=== PATIENT | female | born 1980 | race Caucasian/White ===

== ENCOUNTER → 2016-08-16 | Outpatient (CLI) | payer OTHER ==
[~2016-08-16] MED LIST: ACET-1256 PO; ASPI1CHW12 PO; ASPI325T39 PO; BCPILLS PO; FERR1TAB13 PO; FLV1 PO; LEVO1TAB35 PO; METH2.5T PO; PRENTAB26 PO; PRVHFAIN INH; VNTHFA/IN INH
--- NOTE | 2016-08-16 10:39 | DIAGNOSTIC IMAGING REPORT ---
L-SPINE MIN 4 VIEWS ROUTINE CLINICAL HISTORY: Low back and right hip pain COMPARISON STUDY: No previous studies for comparison. FINDINGS: There is a moderate lumbar levoscoliosis. No acute fractures are visualized. There is a grade 1 spondylolisthesis of L5 on S1. There is an equivocal old fracture involving the third sacral segment. There are mild multilevel degenerative changes. IMPRESSION: 1. Scoliosis 2. No acute fractures. 3. Possible old fracture involving the third sacral segment 4. Mild multilevel degenerative change Electronically signed by: Paul Handy M.D. 08/16/2016 10:37 AM
== END | disposition home or self-care (01) ==
LOC: C.LABBC 10:08
PROVIDERS: ATTEND Nurse Practitioner Family
DX: M54.5 Low back pain (principal); M41.9 Scoliosis, unspecified

== ENCOUNTER 2016-09-05 17:30 | Emergency (ER) | payer OTHER ==
[~2016-09-05 17:30] MED LIST changes: -ASPI1CHW12 PO; -ASPI325T39 PO; -FERR1TAB13 PO; -LEVO1TAB35 PO; -PRENTAB26 PO; -PRVHFAIN INH; -VNTHFA/IN INH
[2016-09-05 17:35] VITALS: TEMP 36.7; Ht 157.5 cm
[2016-09-05] MEDS ORDERED: SODIUM CHLORIDE 0.9% 1000ML 1,000 ML IV STA (17:50)
--- NOTE | 2016-09-05 17:56 | EMERGENCY ROOM VISIT NOTE ---
History Report prepared by Gianfranco: Karthikeyan Sloan Under the Supervision of: Dr. Al Alexander D.O. First contact with patient: 17:41 Chief Complaint: CHEST PAIN Stated Complaint: CHEST PAIN History of Present Illness The patient is a 36 year old female who presents to the Emergency Room with complaints of "heaviness"-like chest pain that began 1 hour ago. She rates her pain severity a 2/10. The patient recently had her remaining hip replaced at [facility] three days ago. This was due to her chronic rheumatoid arthritis. While she was in the car, her chest pain began. She then began to experiencing shortness of breath and an increase of breathing. She denies any back pain, abdominal pain, fevers, or cough. Her last known menstrual period was 2 weeks ago. She has a history of a heart murmur and the other hip replaced as well. She is currently on Aspirin, a stool softener, Tylenol, Iron, and Folic Acid. Source of History: patient Onset: 1 hour ago Position: chest Symptom Intensity: 2/10 Quality: other (heaviness) Timing: constant Associated Symptoms: + SOB, No abdominal pain, No back pain, No cough, No fevers Review of Systems See HPI for pertinent positives & negatives. A total of 10 systems reviewed and were otherwise negative. Past Medical & Surgical Medical Problems: (1) Rheumatoid arthritis Surgical Problems: (1) History of left hip replacement Family History Patient reports no known family medical history. Social History Smoking Status: Never Smoker Smokeless Tobacco Use: No Drug Use: none Housing Status: lives with family Occupation Status: employed Current/Historical Medications Scheduled Acetaminophen (Tylenol), 1,000 MG PO UD Albuterol Hfa (Ventolin Hfa), 1 PUFF INH Q4 Aspirin (Aspirin Ec), 325 MG PO DAILY Control Pills ( Control Pills), 1 TAB PO DAILY Ferrous Sulfate (Kp Ferrous Sulfate), 1 TAB PO DAILY Folic Acid (Folic Acid), 1 TAB PO WK Levofloxacin (Levaquin), 750 MG PO DAILY Methotrexate (Methotrexate), 12.5 MG PO WK Allergies Coded Allergies: Sulfa Drugs (Unverified Allergy, Unknown, "my face got red and itchy.", ) Physical Exam Vital Signs Date Time Temp Pulse Resp B/P Pulse Ox O2 Delivery O2 Flow Rate FiO2 09/05/16 22:44 110 20 128/83 98 1/22/17 20:22 110 18 128/92 100 Room Air 09/05/16 18:35 99 Room Air 09/05/16 18:35 99 Room Air 09/05/16 18:11 Room Air 09/05/16 18:10 122 09/05/16 17:35 36.7 139 20 119/82 100 Room Air Physical Exam GENERAL: Patient is awake, alert, and uncomfortable appearing. Patient is resting and showing signs of anxiety. EYES: The conjunctivae are clear. The pupils are round and reactive. EARS, NOSE, MOUTH AND THROAT: The nose is without any evidence of any deformity. Mucous membranes are moist tongue is midline NECK: The neck is nontender and supple. RESPIRATORY: Normal respiratory effort is noted there is no evidence of wheezing rhonchi or rales CARDIOVASCULAR: Tachycardic with a normal rhythm noted. There are no definite murmurs rubs or gallops. Normal S1 normal S2 GASTROINTESTINAL: The abdomen is soft. Bowel sounds are present in all quadrants. Abdomen is nontender MUSCULOSKELETAL/EXTREMITIES: There is no evidence of gross deformity or shortening appreciated. Pain with ROM of right hip. SKIN: There is no obvious evidence of any rash. There are no petechiae, pallor or cyanosis noted. No calf tenderness. NEUROLOGIC: Patient is awake alert and oriented x3. Medical Decision & Procedures ER Provider Diagnostic Interpretation: X-ray results as stated below per interpretation by me and the radiologist. CHEST ONE VIEW PORTABLE CLINICAL HISTORY: Atypical chest pain COMPARISON STUDY: 12/09/2010 FINDINGS: The cardiac and mediastinal contours are normal. There is no evidence of focal pulmonary consolidation. There is no evidence of failure. No pleural effusions are visualized.[ There is a thoracolumbar scoliosis. Arthritic changes are present within the shoulders. IMPRESSION: No active disease in the chest. Electronically signed by: Paul Handy M.D. 09/05/2016 6:31 PM Dictated Date/Time: 09/05/2016 6:31 PM Laboratory Results 09/05/16 18:50 Red Blood Count 3.49, Mean Corpuscular Volume 90.8, Mean Corpuscular Hemoglobin 30.7, Mean Corpuscular Hemoglobin Concent 33.8, Mean Platelet Volume 9.1, Neutrophils (%) (Auto) 70.1, Lymphocytes (%) (Auto) 19.9, Monocytes (%) (Auto) 7.4, Eosinophils (%) (Auto) 2.2, Basophils (%) (Auto) 0.1, Neutrophils # (Auto) 5.00, Lymphocytes # (Auto) 1.42, Monocytes # (Auto) 0.53, Eosinophils # (Auto) 0.16, Basophils # (Auto) 0.01 09/05/16 18:50 Test 09/05/16 18:50 09/05/16 18:57 White Blood Count 7.14 K/uL (4.8-10.8) Red Blood Count 3.49 M/uL (4.2-5.4) Hemoglobin 10.7 g/dL (12.0-16.0) Hematocrit 31.7 % (37-47) Mean Corpuscular Volume 90.8 fL (80-100) Mean Corpuscular Hemoglobin 30.7 pg (25-34) Mean Corpuscular Hemoglobin Concent 33.8 g/dl (32-36) Platelet Count 289 K/uL (130-400) Mean Platelet Volume 9.1 fL (7.4-10.4) Neutrophils (%) (Auto) 70.1 % Lymphocytes (%) (Auto) 19.9 % Monocytes (%) (Auto) 7.4 % Eosinophils (%) (Auto) 2.2 % Basophils (%) (Auto) 0.1 % Neutrophils # (Auto) 5.00 K/uL (1.4-6.5) Lymphocytes # (Auto) 1.42 K/uL (1.2-3.4) Monocytes # (Auto) 0.53 K/uL (0.11-0.59) Eosinophils # (Auto) 0.16 K/uL (0-0.5) Basophils # (Auto) 0.01 K/uL (0-0.2) RDW Standard Deviation 43.7 fL (36.4-46.3) RDW Coefficient of Variation 13.3 % (11.5-14.5) Immature Granulocyte % (Auto) 0.3 % Immature Granulocyte # (Auto) 0.02 K/uL (0.00-0.02) Prothrombin Time 11.1 SECONDS (9.0-12.0) Prothromb Time International Ratio 1.0 (0.9-1.1) Activated Partial Thromboplast Time 29.3 SECONDS (21.0-31.0) Partial Thromboplastin Ratio 1.1 Anion Gap 13.0 mmol/L (3-11) Estimated GFR () 149.5 Estimated GFR (Non- 129.0 BUN/Creatinine Ratio 20.9 (10-20) Calcium Level 8.3 mg/dl (8.5-10.1) Total Bilirubin 0.5 mg/dl (0.2-1) Direct Bilirubin 0.2 mg/dl (0-0.2) Aspartate Amino Transf (AST/SGOT) 29 U/L (15-37) Alanine Aminotransferase (ALT/SGPT) 22 U/L (12-78) Alkaline Phosphatase 73 U/L (45-117) Total Creatine Kinase 148 U/L (26-192) Creatine Kinase MB < 0.5 ng/ml (0.5-3.6) Creatine Kinase MB Ratio (0-3.0) Troponin I < 0.015 ng/ml (0-0.045) Total Protein 6.7 gm/dl (6.4-8.2) Albumin 3.0 gm/dl (3.4-5.0) Lipase 123 U/L (73-393) Human Chorionic Gonadotropin, Qual NEG (NEG) Bedside D-Dimer > 450 ng/mlFEU (0-450) Laboratory results per my review. Medications Administered Medications (Trade) Dose Ordered Sig/Chan Route Start Time Stop Time Status Last Admin Dose Admin Sodium Chloride (Nss 1000ml) 1,000 ml @ 999 mls/hr Q1H1M STAT IV 09/05/16 17:50 09/05/16 18:50 DC 09/05/16 18:34 999 MLS/HR Levofloxacin (Levaquin Tab) 750 mg NOW STAT PO 09/05/16 22:16 09/05/16 22:17 DC 09/05/16 22:33 750 MG ECG Indication: chest pain Rate (beats per minute): 114 Rhythm: sinus tachycardia Findings: no ectopy, other (no acute ST abnormalities) Comparison ECG Date: 09 December 2010 Change: no significant change ED Course 1741: The patient was evaluated in room B5. A complete history and physical examination were performed. 1750: Sodium Chloride 1,000 ml @ 999 mls/hr IV 2216: Levofloxacin 750 mg PO 2230: Upon reevaluation, the patient is resting. I discussed the results and treatment plan with her. She verbalized agreement of the treatment plan. She was discharged home. Medical Decision Differential diagnosis: Etiologies such as cardiac ischemia, aortic dissection, pulmonary embolism, pneumonia, pneumothorax, musculoskeletal, infections, pericarditis, myocarditis , esophageal rupture, gastrointestinal, as well as others were entertained. Nursing notes reviewed. The patient is a 36-year-old female who had a recent hip replacement for rheumatoid arthritis. She presented to the emergency department for an evaluation of chest discomfort and shortness of breath. The patient was found have an elevated d-dimer. The patient was treated with IV fluids in the emergency department. She was also given antibiotics. The patient had a nonspecific chest x-ray that did not explain her symptoms. She was found have an elevated d-dimer so CT the chest was obtained. The report was reviewed. There is no definite signs of pulmonary embolism but there was some inflammatory changes as well as nodular densities. I discussed this with the patient and she was started on an antibiotic for possible pneumonia. I discussed follow-up and encouraged her to follow-up with her primary care physician as soon as possible. I also discussed with her that she may require further studies such as repeat radiographic studies of the chest to evaluate the nodular densities. She was also started on an albuterol inhaler. She was encouraged to continue all medications as prescribed and drink plenty clear liquids. She was also encouraged to call her primary care physician in the morning to schedule follow-up appointment but return to the emergency department immediately if symptoms change worsen or if the need arises. Impression Primary Impression: Anterior chest wall pain Additional Impressions: SOB (shortness of breath) PNA (pneumonia) Scribe Attestation The scribe's documentation has been prepared under my direction and personally reviewed by me in its entirety. I confirm that the note above accurately reflects all work, treatment, procedures, and medical decision making performed by me. Departure Information Dispostion Home / Self-Care Prescriptions Albuterol Hfa (VENTOLIN HFA) 200 Puffs/37745 Mcg Aers 1 PUFF INH Q4, #1 INHALER Prov: Al Alexander, DO 09/05/16 Levofloxacin (Levaquin) 750 Mg Tab 750 MG PO DAILY, #7 TAB Prov: Al Alexander, DO 09/05/16 Referrals Rigo Ang III, CRNP (PCP) Forms HOME CARE DOCUMENTATION FORM, IMPORTANT VISIT INFORMATION Patient Instructions ED Chest Pain Atypical [facility], [facility] Additional Instructions Call your primary care physician in the morning to schedule a follow-up appointment. Continue all medications as prescribed. Rest and avoid any strenuous activity. Problem Qualifiers
[2016-09-05] MEDS ORDERED: FERR1TAB13 PO (18:10)
[2016-09-05] MEDS ORDERED: ASPI325T39 PO (18:10)
--- NOTE | 2016-09-05 18:33 | DIAGNOSTIC IMAGING REPORT ---
CHEST ONE VIEW PORTABLE CLINICAL HISTORY: Atypical chest pain COMPARISON STUDY: 12/09/2010 FINDINGS: The cardiac and mediastinal contours are normal. There is no evidence of focal pulmonary consolidation. There is no evidence of failure. No pleural effusions are visualized.[ There is a thoracolumbar scoliosis. Arthritic changes are present within the shoulders. IMPRESSION: No active disease in the chest. Electronically signed by: Paul Handy M.D. 09/05/2016 6:31 PM Dictated Date/Time: 09/05/2016 6:31 PM
[2016-09-05 18:35] VITALS: O2SAT 99
[2016-09-05 19:01] LABS: BASO % 0.1 %; BASO ABS # 0.01 K/uL (0-0.2); COMPLETE YES; EOS % 2.2 %; HEMATOCRIT 31.7 % (37-47); IG% 0.3 %; LYMPH % 19.9 %; LYMPH ABS # 1.42 K/uL (1.2-3.4); MEAN CELL VOLUME 90.8 fL (80-100); MEAN CORPUSCULAR HEMOGLOBIN 30.7 pg (25-34); MEAN CORPUSCULAR HGB CONC 33.8 g/dl (32-36); MEAN PLATELET VOLUME 9.1 fL (7.4-10.4); MONO % 7.4 %; NEUT % 70.1 %; PLATELET COUNT 289 K/uL (130-400); RED BLOOD COUNT 3.49 M/uL (4.2-5.4); WHITE BLOOD COUNT 7.14 K/uL (4.8-10.8)
[2016-09-05 19:12] LABS: PARTIAL THROMBOPLASTIN RATIO 1.1; PROTHROMBIN TIME (PATIENT) 11.1 SECONDS (9.0-12.0)
[2016-09-05 19:15] LABS: ALT/SGPT 22 U/L (12-78); BLOOD UREA NITROGEN 9 mg/dl (7-18); BUN/CREATININE RATIO 20.9 (10-20); CALCIUM 8.3 mg/dl (8.5-10.1); CARBON DIOXIDE 24 mmol/L (21-32); CHLORIDE 106 mmol/L (98-107); CREATININE 0.43 mg/dl (0.60-1.20); GLUCOSE 86 mg/dl (70-99); POTASSIUM 3.7 mmol/L (3.5-5.1); PREG INTERNAL NEGATIVE QC NEG CLEAR BACKGROUND; PREG INTERNAL POSITIVE QC POS CONTROL LINE; SODIUM 143 mmol/L (136-145)
[2016-09-05 19:20] LABS: ALKALINE PHOSPHATASE 73 U/L (45-117); AST/SGOT 29 U/L (15-37)
[2016-09-05] MEDS ORDERED: OPTIRAY 320 IV PRN (19:30)
--- NOTE | 2016-09-05 21:19 | DIAGNOSTIC IMAGING REPORT ---
CT ANGIOGRAM OF THE CHEST CLINICAL HISTORY: Chest pain, shortness of breath, history of recent surgery COMPARISON STUDY: 12/09/2010 TECHNIQUE: Following the IV administration of 79 mL of Optiray-320, CT angiogram of the thorax was performed from the thoracic inlet to the lung bases utilizing the pulmonary embolus protocol. Images are reviewed in the axial, sagittal, and coronal planes. IV contrast was administered without complication. MIP imaging was performed. CT DOSE: 199.30 mGy.cm FINDINGS: Subcarinal and hilar lymph nodes are the upper limits of normal in size. There was no evidence of thoracic aortic dilatation. There were no pulmonary artery filling defects to indicate acute pulmonary embolism. No pleural effusions are visualized. There is no lobar pulmonary consolidation. There are a few tree-in-bud opacities within the right upper lobe. In addition there is a 4 mm endobronchial nodule as visualized in image #[id number]. This is likely inflammatory. Also evident is a 2 mm left upper lobe pulmonary nodule image #[id number]. Short-term one month follow-up CT scan is recommended. IMPRESSION: 1. No CT evidence of acute pulmonary embolism 2. Minimally prominent hilar and subcarinal lymph nodes likely reactive 3. Tree-in-bud opacities in the right upper lobe. In addition there is a 4 mm endobronchial nodule within the right upper lobe. This is likely inflammatory. Short-term one-month follow-up CT scan is recommended. Electronically signed by: Paul Handy M.D. 09/05/2016 9:18 PM Dictated Date/Time: 09/05/2016 9:11 PM
[2016-09-05] MEDS ORDERED: LEVOFLOXACIN 250 MG TAB PO STA (22:16)
[2016-09-05] MEDS ORDERED: VNTHFA/IN INH (22:18)
[2016-09-05] MEDS ORDERED: LEVO1TAB35 PO (22:18)
[2016-09-05 22:44] VITALS: BP 128/83; PULSE 110; O2SAT 98
== END 2016-09-05 22:46 | disposition home or self-care (01) ==
LOC: C.EDB 17:30
DX: R07.89 Other chest pain (principal); R06.02 Shortness of breath; J18.9 Pneumonia, unspecified organism; Z79.82 Long term (current) use of aspirin

== ENCOUNTER → 2016-09-10 | Outpatient (CLI) | payer OTHER ==
[~2016-09-10] MED LIST changes: +ASPI1CHW12 PO; +ASPI325T39 PO; +FERR1TAB13 PO; +LEVO1TAB35 PO; +PRENTAB26 PO; +PRVHFAIN INH; +VNTHFA/IN INH
[2016-09-10 13:55] LABS: BASO % 0.1 %; BASO ABS # 0.01 K/uL (0-0.2); COMPLETE YES; EOS % 2.6 %; HEMATOCRIT 33.4 % (37-47); IG% 0.7 %; LYMPH % 15.2 %; LYMPH ABS # 1.04 K/uL (1.2-3.4); MEAN CELL VOLUME 90.8 fL (80-100); MEAN CORPUSCULAR HEMOGLOBIN 30.4 pg (25-34); MEAN CORPUSCULAR HGB CONC 33.5 g/dl (32-36); MONO % 9.8 %; NEUT % 71.6 %; PLATELET COUNT 434 K/uL (130-400); RED BLOOD COUNT 3.68 M/uL (4.2-5.4); WHITE BLOOD COUNT 6.82 K/uL (4.8-10.8)
== END | disposition home or self-care (01) ==
LOC: C.LABBC 12:10
PROVIDERS: ATTEND Nurse Practitioner Family
DX: Z98.890 Other specified postprocedural states (principal)

== ENCOUNTER 2016-09-24 15:30 | Emergency (ER) | payer OTHER ==
[~2016-09-24] VITALS: Ht 157.5 cm; Wt 45.7 kg
[~2016-09-24 15:30] MED LIST changes: -ASPI1CHW12 PO; -PRENTAB26 PO; -PRVHFAIN INH
[2016-09-24 15:39] VITALS: TEMP 37
[2016-09-24] MEDS ORDERED: SODIUM CHLORIDE 0.9% 1000ML 1,000 ML IV STA (15:56)
[2016-09-24 16:15] VITALS: O2SAT 98
--- NOTE | 2016-09-24 16:27 | EMERGENCY ROOM VISIT NOTE ---
History Report prepared by Gianfranco: Farrukh Gilmore Under the Supervision of: Dr. Al Alexander D.O. First contact with patient: 15:46 Chief Complaint: REFERRED BY DOCTOR Stated Complaint: REFERRED BY DOCTOR,AUGUSTIN. FOR BLOOD CLOTS/CP History of Present Illness The patient is a 36 year old female who presents to the Emergency Room with complaints of intermittent chest heaviness beginning two days prior to arrival. She currently rates her discomfort as a 5/10 in severity. The patient associates heart racing, dizziness, shortness of breath, and rattling on inhalation with today's symptoms. She states she spoke to her PCP, who referred her to the ED for further evaluation. The patient states her chest heaviness has been intermittent the past few days, but became persistent today which prompted her visit to the ED. She notes her PCP would like her to be evaluated for possible blood clots due to her recent surgery on September 02. The patient states she has a history of arthritis and a slight heart murmur. She notes she has been eating and drinking well recently. The patient denies a fever, thyroid problems, vomiting, recent illness, and swelling or cramping in the legs. Source of History: patient Onset: two days CUT FILER Position: chest Symptom Intensity: 5/10 Quality: other (heaviness) Timing: intermittent Associated Symptoms: + SOB, No fevers, No vomiting Note: Associated symptoms: heart racing, dizziness, rattling on inhalation Review of Systems See HPI for pertinent positives & negatives. A total of 10 systems reviewed and were otherwise negative. Past Medical & Surgical Medical Problems: (1) Rheumatoid arthritis Surgical Problems: (1) History of left hip replacement Family History Patient reports no known family medical history. Social History Smoking Status: Never Smoker Drug Use: none Housing Status: lives with family Occupation Status: employed Current/Historical Medications Scheduled Acetaminophen (Tylenol), 500 MG PO BID Albuterol (Ventolin Hfa), 1 PUFF INH BID Aspirin (Aspirin 81 Low Dose), 324 MG PO QAM Ferrous Sulfate (Kp Ferrous Sulfate), 325 MG PO QAM Folic Acid (Folic Acid), 1 TAB PO QAM Multivit/Min/Iron/Fol Ac/Pren ( Vitamin), 1 TAB PO QAM Allergies Coded Allergies: Sulfa Drugs (Unverified Allergy, Unknown, "my face got red and itchy.", 05/31) Physical Exam Vital Signs Date Time Temp Pulse Resp B/P Pulse Ox O2 Delivery O2 Flow Rate FiO2 09/24/16 17:22 99 18 124/74 100 Room Air 09/24/16 16:29 94 09/24/16 16:29 97 18 122/82 100 Room Air 09/24/16 16:15 98 Room Air 09/24/16 16:15 98 Room Air 09/24/16 15:39 37.0 103 18 123/84 98 Room Air Physical Exam GENERAL: Patient is awake, alert, and in no acute distress. Patient is resting comfortably and showing no signs of anxiety EYES: The conjunctivae are clear. The pupils are round and reactive. EARS, NOSE, MOUTH AND THROAT: The nose is without any evidence of any deformity. Mucous membranes are moist tongue is midline NECK: The neck is nontender and supple. RESPIRATORY: Normal respiratory effort is noted there is no evidence of wheezing rhonchi or rales CARDIOVASCULAR: Regular rate and rhythm noted there no murmurs rubs or gallops normal S1 normal S2 GASTROINTESTINAL: The abdomen is soft. Bowel sounds are present in all quadrants. Abdomen is nontender MUSCULOSKELETAL/EXTREMITIES: Patient has limited range of motion in both hips but appears to ambulate with cane. She states this is her baseline at this time. No calf tenderness or pedal edema noted. SKIN: There is no obvious evidence of any rash. There are no petechiae, pallor or cyanosis noted. NEUROLOGIC: Patient is awake alert and oriented x3. Medical Decision & Procedures ER Provider Diagnostic Interpretation: Radiology results as stated below per my review and radiologist interpretation: SINGLE VIEW CHEST CLINICAL HISTORY: Dyspnea. FINDINGS: An AP, portable, upright chest radiograph is compared to chest x-ray and chest CT dated 09/05/2016. The examination is degraded by portable technique and patient rotation. The cardiomediastinal silhouette is unremarkable. The lungs and pleural spaces are clear. No pneumothorax is seen. The skeletal structures are osteopenic. There is moderate S-shaped thoracal lumbar scoliosis. Age advanced arthritic changes present in both shoulders. IMPRESSION: No active disease in the chest. Electronically signed by: Charles Valera M.D. 09/24/2016 4:[address] ANGIOGRAPHY OF THE CHEST, PULMONARY EMBOLUS PROTOCOL CLINICAL HISTORY: Chest pain. COMPARISON STUDY: Chest CT September 05, 2016 and chest radiograph performed earlier today. TECHNIQUE: Following IV administration of 76 mL of Optiray-320, helical axial images of the chest were obtained utilizing the pulmonary embolus protocol. Maximal intensity projections and sagittal and coronal reformats were viewed on an independent 3D workstation. IV contrast was administered without complication. CT DOSE: 258.83 mGy.cm FINDINGS: No pulmonary emboli are identified although this exam is mildly compromised by suboptimal opacification and mild respiratory motion artifact. The size of the heart is normal. There is no evidence of thoracic aortic dissection. Prominent mediastinal and bilateral hilar lymph nodes are similar to exam of September 10, 2016. Scoliosis of the thoracolumbar spine is noted. There is no pneumothorax or pleural effusion. A 4 mm right upper lobe nodule shown image 200 of 278 is unchanged. Mild tree-in-bud nodules within the right upper lobe are similar to prior exam. The appearance of the chest is unchanged. The upper abdomen is unremarkable. IMPRESSION: 1. No pulmonary emboli identified although this exam is mildly compromised by suboptimal opacification and respiratory motion artifact. 2. No significant change in tree-in-bud nodules within the right upper lobe since recent chest CT. The findings favor an infectious/inflammatory etiology. Stable 4 mm right upper lobe nodule. A follow-up chest CT in 3 months is recommended. 3. Prominent mediastinal and bilateral hilar lymph nodes which are unchanged since prior exam and may be reactive. These can be assessed on subsequent CT. Electronically signed by: Jerad Vinson M.D. 09/24/2016 5:50 PM Laboratory Results 09/24/16 16:10 Red Blood Count 4.28, Mean Corpuscular Volume 93.0, Mean Corpuscular Hemoglobin 30.6, Mean Corpuscular Hemoglobin Concent 32.9, Mean Platelet Volume 9.2, Neutrophils (%) (Auto) 76.3, Lymphocytes (%) (Auto) 12.9, Monocytes (%) (Auto) 7.8, Eosinophils (%) (Auto) 2.4, Basophils (%) (Auto) 0.3, Neutrophils # (Auto) 5.37, Lymphocytes # (Auto) 0.91, Monocytes # (Auto) 0.55, Eosinophils # (Auto) 0.17, Basophils # (Auto) 0.02 09/24/16 16:10 Test 09/24/16 16:10 09/24/16 17:06 White Blood Count 7.04 K/uL (4.8-10.8) Red Blood Count 4.28 M/uL (4.2-5.4) Hemoglobin 13.1 g/dL (12.0-16.0) Hematocrit 39.8 % (37-47) Mean Corpuscular Volume 93.0 fL (80-100) Mean Corpuscular Hemoglobin 30.6 pg (25-34) Mean Corpuscular Hemoglobin Concent 32.9 g/dl (32-36) Platelet Count 351 K/uL (130-400) Mean Platelet Volume 9.2 fL (7.4-10.4) Neutrophils (%) (Auto) 76.3 % Lymphocytes (%) (Auto) 12.9 % Monocytes (%) (Auto) 7.8 % Eosinophils (%) (Auto) 2.4 % Basophils (%) (Auto) 0.3 % Neutrophils # (Auto) 5.37 K/uL (1.4-6.5) Lymphocytes # (Auto) 0.91 K/uL (1.2-3.4) Monocytes # (Auto) 0.55 K/uL (0.11-0.59) Eosinophils # (Auto) 0.17 K/uL (0-0.5) Basophils # (Auto) 0.02 K/uL (0-0.2) RDW Standard Deviation 48.6 fL (36.4-46.3) RDW Coefficient of Variation 14.3 % (11.5-14.5) Immature Granulocyte % (Auto) 0.3 % Immature Granulocyte # (Auto) 0.02 K/uL (0.00-0.02) Prothrombin Time 10.8 SECONDS (9.0-12.0) Prothromb Time International Ratio 1.0 (0.9-1.1) Activated Partial Thromboplast Time 26.8 SECONDS (21.0-31.0) Partial Thromboplastin Ratio 1.0 D-Dimer 1370 ug/L FEU (0-500) Anion Gap 12.0 mmol/L (3-11) Est Creatinine Clear Calc Drug Dose 87.3 ml/min Estimated GFR () 131.9 Estimated GFR (Non- 113.8 BUN/Creatinine Ratio 29.4 (10-20) Calcium Level 9.6 mg/dl (8.5-10.1) Magnesium Level 2.4 mg/dl (1.8-2.4) Total Bilirubin 0.3 mg/dl (0.2-1) Aspartate Amino Transf (AST/SGOT) 18 U/L (15-37) Alanine Aminotransferase (ALT/SGPT) 27 U/L (12-78) Alkaline Phosphatase 138 U/L (45-117) Total Creatine Kinase 31 U/L (26-192) Creatine Kinase MB 0.6 ng/ml (0.5-3.6) Creatine Kinase MB Ratio 1.9 (0-3.0) Troponin I < 0.015 ng/ml (0-0.045) Total Protein 8.2 gm/dl (6.4-8.2) Albumin 4.1 gm/dl (3.4-5.0) Globulin 4.1 gm/dl (2.5-4.0) Albumin/Globulin Ratio 1.0 (0.9-2) Thyroid Stimulating Hormone (TSH) 1.680 uIu/ml (0.300-4.500) Free Thyroxine 0.84 ng/dl (0.80-1.60) Human Chorionic Gonadotropin, Qual NEG (NEG) Urine Color YELLOW Urine Appearance CLEAR (CLEAR) Urine pH 6.0 (4.5-7.5) Urine Specific [place] 1.002 (1.000-1.030) Urine Protein NEG (NEG) Urine Glucose (UA) NEG (NEG) Urine Ketones NEG (NEG) Urine Occult Blood NEG (NEG) Urine Nitrite NEG (NEG) Urine Bilirubin NEG (NEG) Urine Urobilinogen NEG (NEG) Urine Leukocyte Esterase NEG (NEG) Laboratory results per my review. Medications Administered Medications (Trade) Dose Ordered Sig/Chan Route Start Time Stop Time Status Last Admin Dose Admin Sodium Chloride (Nss 1000ml) 1,000 ml @ 999 mls/hr Q1H1M STAT IV 09/24/16 15:56 09/24/16 16:56 DC 09/24/16 16:15 999 MLS/HR ECG Indication: chest pain Rate (beats per minute): 94 Rhythm: normal sinus Findings: no ectopy, other (No acute ST segment abnormality) Comparison ECG Date: 09/05/2016 Change: no significant change ED Course 1553: The patient was evaluated in room C11B. A complete history and physical examination were performed. 1556: Ordered Sodium Chloride 1,000 ml @ 999 mls/hr IV. 1820: Upon reevaluation, the patient is doing well. I discussed the results and treatment plan with her. She verbalized agreement of the treatment plan. The patient was discharged home. Medical Decision Etiologies such as infections, reactive airway disease, pneumonia, pneumothorax , COPD, CHF, cardiac ischemia, pulmonary embolism, musculoskeletal, gastrointestinal, as well as others were entertained. Nursing notes reviewed. Patient's previous electronic medical records reviewed. The patient is a 36-year-old female who presented to the emergency department for an evaluation of chest pain. The patient has had ongoing chest pain for quite some time. She was seen in our facility with similar complaints recently. She had a CT the chest after a positive d-dimer. This did not show any acute pulmonary embolism. The patient has a history of recent surgical management of hip problems. She was seen by her primary care physician again today and sent to the emergency department for the exact same thing. Again her d-dimer is elevated. Again her CT the chest did not show any acute signs pulmonary embolism. She was not tachycardic or hypoxic. She was encouraged to rest and avoid any strenuous activity. She was encouraged to follow-up with her primary care physician as soon as possible drink plenty clear liquids. She was also encouraged to return to the emergency department immediately if symptoms change worsen or the need arises. Impression Primary Impression: Left sided chest pain Additional Impression: Palpitations Scribe Attestation The scribe's documentation has been prepared under my direction and personally reviewed by me in its entirety. I confirm that the note above accurately reflects all work, treatment, procedures, and medical decision making performed by me. Departure Information Dispostion Home / Self-Care Referrals Rigo Ang III, CRNP (PCP) Forms HOME CARE DOCUMENTATION FORM, IMPORTANT VISIT INFORMATION, WORK / SCHOOL INSTRUCTIONS Patient Instructions ED Chest Pain Atypical Unkn Cause, My [facility] Additional Instructions Continue all medications as prescribed. Drink plenty clear liquids. Call your family in the morning to schedule a follow-up appointment. Rest and avoid any strenuous activity. Problem Qualifiers
[2016-09-24 16:29] VITALS: Ht 157.5 cm; Wt 45.7 kg
[2016-09-24 16:30] LABS: BASO % 0.3 %; BASO ABS # 0.02 K/uL (0-0.2); COMPLETE YES; EOS % 2.4 %; HEMATOCRIT 39.8 % (37-47); IG% 0.3 %; LYMPH % 12.9 %; LYMPH ABS # 0.91 K/uL (1.2-3.4); MEAN CORPUSCULAR HEMOGLOBIN 30.6 pg (25-34); MEAN CORPUSCULAR HGB CONC 32.9 g/dl (32-36); MEAN PLATELET VOLUME 9.2 fL (7.4-10.4); MONO % 7.8 %; NEUT % 76.3 %; PLATELET COUNT 351 K/uL (130-400); RED BLOOD COUNT 4.28 M/uL (4.2-5.4); WHITE BLOOD COUNT 7.04 K/uL (4.8-10.8)
[2016-09-24 16:42] LABS: PROTHROMBIN TIME (PATIENT) 10.8 SECONDS (9.0-12.0)
--- NOTE | 2016-09-24 16:47 | DIAGNOSTIC IMAGING REPORT ---
SINGLE VIEW CHEST CLINICAL HISTORY: Dyspnea. FINDINGS: An AP, portable, upright chest radiograph is compared to chest x-ray and chest CT dated 09/05/2016. The examination is degraded by portable technique and patient rotation. The cardiomediastinal silhouette is unremarkable. The lungs and pleural spaces are clear. No pneumothorax is seen. The skeletal structures are osteopenic. There is moderate S-shaped thoracal lumbar scoliosis. Age advanced arthritic changes present in both shoulders. IMPRESSION: No active disease in the chest. Electronically signed by: Charles Valera M.D. 09/24/2016 4:46 PM Dictated Date/Time: 09/24/2016 4:45 PM
[2016-09-24 16:50] LABS: ALT/SGPT 27 U/L (12-78); BLOOD UREA NITROGEN 19 mg/dl (7-18); BUN/CREATININE RATIO 29.4 (10-20); CALCIUM 9.6 mg/dl (8.5-10.1); CARBON DIOXIDE 26 mmol/L (21-32); CHLORIDE 102 mmol/L (98-107); CREATININE 0.63 mg/dl (0.60-1.20); GLUCOSE 95 mg/dl (70-99); MAGNESIUM 2.4 mg/dl (1.8-2.4); POTASSIUM 3.9 mmol/L (3.5-5.1); SODIUM 140 mmol/L (136-145)
[2016-09-24 16:54] LABS: PREG INTERNAL NEGATIVE QC NEG CLEAR BACKGROUND; PREG INTERNAL POSITIVE QC POS CONTROL LINE
[2016-09-24 16:59] LABS: ALKALINE PHOSPHATASE 138 U/L (45-117); AST/SGOT 18 U/L (15-37); CKMB/CK RATIO 1.9 (0-3.0)
[2016-09-24] MEDS ORDERED: PRVHFAIN INH (17:08)
[2016-09-24] MEDS ORDERED: ASPI1CHW12 PO (17:08)
[2016-09-24] MEDS ORDERED: PRENTAB26 PO (17:09)
[2016-09-24] MEDS ORDERED: OPTIRAY 320 IV PRN (17:15)
[2016-09-24 17:23] LABS: URINE APPEARANCE CLEAR (CLEAR); URINE BILIRUBIN NEG (NEG); URINE COLOR YELLOW; URINE NITRITE NEG (NEG); URINE SPECIFIC GRAVITY 1.002 (1.000-1.030); UROBILINOGEN NEG (NEG)
[2016-09-24 17:32] LABS: MANUAL MICROSCOPIC REQUIRED? NO; REVIEW REQ? NO
--- NOTE | 2016-09-24 17:51 | DIAGNOSTIC IMAGING REPORT ---
CT ANGIOGRAPHY OF THE CHEST, PULMONARY EMBOLUS PROTOCOL CLINICAL HISTORY: Chest pain. COMPARISON STUDY: Chest CT September 05, 2016 and chest radiograph performed earlier today. TECHNIQUE: Following IV administration of 76 mL of Optiray-320, helical axial images of the chest were obtained utilizing the pulmonary embolus protocol. Maximal intensity projections and sagittal and coronal reformats were viewed on an independent 3D workstation. IV contrast was administered without complication. CT DOSE: 258.83 mGy.cm FINDINGS: No pulmonary emboli are identified although this exam is mildly compromised by suboptimal opacification and mild respiratory motion artifact. The size of the heart is normal. There is no evidence of thoracic aortic dissection. Prominent mediastinal and bilateral hilar lymph nodes are similar to exam of September 10, 2016. Scoliosis of the thoracolumbar spine is noted. There is no pneumothorax or pleural effusion. A 4 mm right upper lobe nodule shown image 200 of 278 is unchanged. Mild tree-in-bud nodules within the right upper lobe are similar to prior exam. The appearance of the chest is unchanged. The upper abdomen is unremarkable. IMPRESSION: 1. No pulmonary emboli identified although this exam is mildly compromised by suboptimal opacification and respiratory motion artifact. 2. No significant change in tree-in-bud nodules within the right upper lobe since recent chest CT. The findings favor an infectious/inflammatory etiology. Stable 4 mm right upper lobe nodule. A follow-up chest CT in 3 months is recommended. 3. Prominent mediastinal and bilateral hilar lymph nodes which are unchanged since prior exam and may be reactive. These can be assessed on subsequent CT. Electronically signed by: Jerad Vinson M.D. 09/24/2016 5:50 PM Dictated Date/Time: 09/24/2016 5:39 PM
[2016-09-24 18:34] VITALS: BP 110/79; PULSE 98; O2SAT 99
== END 2016-09-24 18:38 | disposition home or self-care (01) ==
LOC: C.EDB 15:31 → C.EDC 18:38
DX: R07.9 Chest pain, unspecified (principal); R00.2 Palpitations

== ENCOUNTER → 2016-09-27 | Outpatient (CLI) | payer OTHER ==
[~2016-09-27] MED LIST changes: +ASPI1CHW12 PO; -ASPI325T39 PO; -BCPILLS PO; -LEVO1TAB35 PO; -METH2.5T PO; +PRENTAB26 PO; +PRVHFAIN INH; -VNTHFA/IN INH
--- NOTE | 2016-09-27 15:35 | DIAGNOSTIC IMAGING REPORT ---
Venous Doppler right leg VENOUS DOPP LOWER EXT UNILAT CLINICAL HISTORY: Z98.890 Status post hip [id number] Limb pain postoperative pain. Edema. TECHNIQUE: Venous Doppler COMPARISON STUDY: None FINDINGS: Normal study IMPRESSION: Normal study Electronically signed by: Devendra Hackett M.D. 09/27/2016 3:34 PM Dictated Date/Time: 09/27/2016 3:33 PM
== END | disposition home or self-care (01) ==
LOC: C.ULTR 14:36
PROVIDERS: ATTEND Family Medicine
DX: M79.609 Pain in unspecified limb (principal); Z98.890 Other specified postprocedural states

== ENCOUNTER 2016-10-25 10:29 | Emergency (ER) | payer OTHER ==
[2016-10-25 10:32] VITALS: TEMP 36.6; Ht 157.5 cm
--- NOTE | 2016-10-25 11:31 | DIAGNOSTIC IMAGING REPORT ---
RIGHT HIP UNILATERAL 2 VIEWS CLINICAL HISTORY: R hip pain s/p fall Right trauma. Pain. COMPARISON: None. DISCUSSION: No acute process status post total right hip arthroplasty. No evidence for acetabular protrusion. Good contact during prosthetic and underlying bone. There is no evidence for soft tissue swelling. IMPRESSION: Anatomic alignment status post right hip arthroplasty. No acute process. Electronically signed by: Devendra Hackett M.D. 10/25/2016 11:29 AM Dictated Date/Time: 10/25/2016 11:29 AM
[2016-10-25 12:22] VITALS: BP 126/76; PULSE 83; O2SAT 100
--- NOTE | 2016-10-25 17:00 | EMERGENCY ROOM VISIT NOTE ---
History First contact with patient: 10:46 Chief Complaint: FALL Stated Complaint: FELL,HIT HEAD,RT HIP PAIN-SURG. RT HIP 09/02/16 History of Present Illness The patient is a 36 year old female who presents to the Emergency Room with complaints of injuries after she fell approximately one hour prior to arrival. The patient reports that her dog ran into her, causing her to fall onto her right side. She complains of right hip pain and hitting the back of her head. The patient had a right primary total hip arthroplasty performed in August of this year. The patient has a history of rheumatoid arthritis. Her surgery was performed at the [facility] in [place]. The patient complains of only mild neck pain and headache. She had no loss of consciousness. She denies any blurred vision, tinnitus, nausea or undue fatigue. The patient denies any prior history of significant head injuries. She rates her overall discomfort a 3 out of 10. She is most concerned about her hip on today's visit. Review of Systems 10 system review was performed and was negative except for pertinent positives and negatives as indicated in history of present illness Past Medical/Surgical History Medical Problems: (1) Rheumatoid arthritis Surgical Problems: (1) History of left hip replacement Family History Patient reports no known family medical history. Social History Smoking Status: Never Smoker Drug Use: none Housing Status: lives with family Occupation Status: employed Current/Historical Medications Scheduled Acetaminophen (Tylenol), 500 MG PO BID Folic Acid (Folic Acid), 1 TAB PO QAM Multivit/Min/Iron/Fol Ac/Pren ( Vitamin), 1 TAB PO QAM Allergies Coded Allergies: Sulfa Drugs (Unverified Allergy, Unknown, "my face got red and itchy.", ) Physical Exam Vital Signs Date Time Temp Pulse Resp B/P Pulse Ox O2 Delivery O2 Flow Rate FiO2 10/25/16 12:22 83 18 126/76 100 10/25/16 10:32 36.6 96 18 139/75 100 Room Air Physical Exam CONSTITUTIONAL: Healthy and well nourished. Alert and oriented X 3 with positive affect. She does not appear in any acute distress. HEENT: Normocephalic, atraumatic. Pupils equal, round and reactive. No subconjunctival hemorrhage, hemotympanum, raccoon's eyes, Huffman sign or epistaxis. GCS 15. NECK: Full active range of motion without discomfort. She has no focal tenderness to palpation through the central cervical spine or cervical musculature. RESPIRATORY: Clear to auscultation bilaterally with no wheezing, crackles, rhonchi or stridor. CARDIOVASCULAR: Regular rate and rhythm with no murmurs, rubs or gallops. GASTROINTESTINAL: Bowel sounds present in all quadrants. Nontender to palpation. MUSCULOSKELETAL: Examination shows no significant discomfort with flexion, extension, internal or external rotation of the right hip. Pelvis stable with rock. No focal tenderness to palpation through the central lumbar spine. Pelvis stable with rock. Distal pulses are intact. INTEGUMENTARY: No rash or other significant dermatologic conditions noted. NEUROLOGIC: Cranial nerves II-XII grossly intact. No focal neurologic deficits noted. Right lower extremity is sensory intact. Medical Decision & Procedures ER Provider Diagnostic Interpretation: My interpretation of right hip x-rays does not show any acute fractures or dislocation. Radiologist report is as follows: RIGHT HIP UNILATERAL 2 VIEWS CLINICAL HISTORY: R hip pain s/p fall Right trauma. Pain. COMPARISON: None. DISCUSSION: No acute process status post total right hip arthroplasty. No evidence for acetabular protrusion. Good contact during prosthetic and underlying bone. There is no evidence for soft tissue swelling. IMPRESSION: Anatomic alignment status post right hip arthroplasty. No acute process. ED Course Patient history and physical exam were performed. Nurse's notes were reviewed. The patient refused any analgesics on initial exam. X-rays of the right hip were also normal. I did advise the patient of her normal x-ray findings. The patient usually uses a cane for ambulation. She still has her walker at home from her surgery. I explained that she may need a walker for the next several days until her symptoms improve. She was encouraged to intermittently apply ice to her hip/buttock region. Regarding her head injury, I did discuss her symptoms and diagnosis of concussion. I also discussed the utilization of CT studies with concerns for intracranial bleed or skull fracture. I also discussed the risks of radiation exposure with CT scans. At this point, the patient elected conservative management, and will watch for any worsening symptoms. The patient's mother was also with her. She was encouraged to take Tylenol as needed for pain. She refused any prescription antiemetics. She was given instructions for no strenuous activities over the next week. She was encouraged to follow-up with her PCP as needed for further management, returning to the emergency department for any progressively worsening headache, vomiting, unusual drowsiness or other neurologic symptoms. The patient was happy with plan of care, voiced understanding of all discharge instructions, and rated her pain a 3 out of 10 at the time of discharge. Impression Primary Impression: Concussion Additional Impressions: Contusion of right hip Fall Departure Information Referrals Rigo Ang III, CRNP (PCP) Patient Instructions My [facility] Problem Qualifiers Primary Impression: Concussion Encounter type: initial encounter Loss of consciousness presence/duration: without LOC Qualified Codes: S06.0X0A - Concussion without loss of consciousness, initial encounter Additional Impressions: Contusion of right hip Encounter type: initial encounter Qualified Codes: S70.01XA - Contusion of right hip, initial encounter Fall Encounter type: initial encounter Qualified Codes: W19.XXXA - Unspecified fall, initial encounter
== END 2016-10-25 12:23 | disposition home or self-care (01) ==
LOC: C.EDB 10:30 → C.EDD 12:23
DX: S06.0X0A Concussion without loss of consciousness, initial encounter (principal); S70.01XA Contusion of right hip, initial encounter; W19.XXXA Unspecified fall, initial encounter; M06.9 Rheumatoid arthritis, unspecified

== ENCOUNTER → 2016-11-08 | Outpatient (CLI) | payer OTHER ==
[~2016-11-08] MED LIST changes: -ASPI1CHW12 PO; -FERR1TAB13 PO; -PRVHFAIN INH
== END | disposition home or self-care (01) ==
LOC: C.PAPS 16:55
PROVIDERS: ATTEND Obstetrics & Gynecology
DX: Z12.4 Encounter for screening for malignant neoplasm of cervix (principal); Z87.42 Personal history of other diseases of the female genital tract

== ENCOUNTER → 2016-11-08 | Outpatient (CLI) | payer OTHER ==
[2016-11-10 23:02] LABS: CHLAMYDIA TRACH RNA*** NOT DETECTED (NOT DETECTED); GC (NEIS GONORRHOEAE)RNA** NOT DETECTED (NOT DETECTED)
== END | disposition home or self-care (01) ==
LOC: C.LABSPEC 15:52
PROVIDERS: ATTEND Obstetrics & Gynecology
DX: Z11.3 Encounter for screening for infections with a predominantly sexual mode of transmission (principal)

== ENCOUNTER → 2016-12-17 | Outpatient (CLI) | payer OTHER ==
[2016-12-17 14:39] LABS: BASO % 0.2 %; BASO ABS # 0.02 K/uL (0-0.2); COMPLETE YES; EOS % 1.4 %; HEMATOCRIT 42.4 % (37-47); IG% 0.2 %; LYMPH % 12.7 %; LYMPH ABS # 1.11 K/uL (1.2-3.4); MEAN CELL VOLUME 91.6 fL (80-100); MEAN CORPUSCULAR HGB CONC 32.8 g/dl (32-36); MEAN PLATELET VOLUME 9.6 fL (7.4-10.4); NEUT % 77.5 %; PLATELET COUNT 323 K/uL (130-400); RED BLOOD COUNT 4.63 M/uL (4.2-5.4); WHITE BLOOD COUNT 8.74 K/uL (4.8-10.8)
[2016-12-17 15:02] LABS: ALT/SGPT 21 U/L (12-78); AST/SGOT 17 U/L (15-37); CREATININE 0.45 mg/dl (0.60-1.20)
[2016-12-17 15:04] LABS: ALKALINE PHOSPHATASE 120 U/L (45-117)
== END | disposition home or self-care (01) ==
LOC: C.LABBC 12:26
PROVIDERS: ATTEND Internal Medicine Rheumatology
DX: Z51.81 Encounter for therapeutic drug level monitoring (principal); Z79.899 Other long term (current) drug therapy

== ENCOUNTER → 2016-12-17 | Outpatient (CLI) | payer OTHER | END | disposition home or self-care (01) | LOC: C.LABBC 12:30 | PROVIDERS: ATTEND Obstetrics & Gynecology | DX: Z11.3 Encounter for screening for infections with a predominantly sexual mode of transmission (principal) ==

== ENCOUNTER → 2016-12-29 | Outpatient (CLI) | payer OTHER ==
[~2016-12-29] MED LIST changes: +OPTIRAY 320 IV PRN
--- NOTE | 2016-12-29 13:28 | DIAGNOSTIC IMAGING REPORT ---
CHEST CT WITH CONTRAST CT DOSE: 393.22 mGycm HISTORY: R91.8 Multiple pulmonary [id number] Mediastinal adenopathy TECHNIQUE: Multiaxial CT images of the chest were performed following the intravenous administration of contrast. COMPARISON: Chest CTA 09/24/2016. FINDINGS: The mediastinal and hilar lymph nodes have decreased in size. Stable axillary lymph nodes. The central pulmonary arteries are patent. Normal caliber thoracic aorta. The heart is normal in size. S-shaped scoliosis of the thoracolumbar spine. Small amount of soft tissue density within the anterior mediastinum likely represents residual thymus. This remains unchanged. The visualized liver, spleen, and adrenal glands are unremarkable. No pneumothorax or pleural effusions. The tree-in-bud nodules and 4 mm nodule within the right upper lobe have resolved in the interval. No new focal lung consolidations. IMPRESSION: 1. Interval resolution of the mediastinal and hilar lymphadenopathy. 2. The right upper lobe nodules have also resolved. No new focal lung consolidations. 3. Scoliosis. Electronically signed by: Jacques Benz M.D. 12/29/2016 1:27 PM Dictated Date/Time: 12/29/2016 1:20 PM
== END | disposition home or self-care (01) ==
LOC: C.CTS 12:33
PROVIDERS: ATTEND Family Medicine
DX: R59.0 Localized enlarged lymph nodes (principal); R91.8 Other nonspecific abnormal finding of lung field; M41.9 Scoliosis, unspecified